=== PATIENT | male | born 1950 | race Caucasian/White ===

== ENCOUNTER 2021-08-14 12:19 | Day surgery (SDC) | payer MEDICARE, OTHER ==
[~2021-08-14] VITALS: Ht 195.6 cm; Wt 124.6 kg
[2021-08-14] MEDS ORDERED: ZOCOR 40MG40 MG PO (12:50)
[2021-08-14] MEDS ORDERED: ADVIL200 MG PO (12:51)
[2021-08-14] MEDS ORDERED: NORCO 325 MG-51 TAB PO (14:05)
[2021-08-14] MEDS ORDERED: FLOMAX 0.40.4 MG/CAP PO (14:05)
[2021-08-14 14:55] VITALS: BP 153/79; PULSE 74; TEMP 97.3
--- NOTE | 2021-08-14 14:55 | NUR ---
Patient arrived back into [facility] from PACU. Report received from MANI Schwartz. Patient requesting cranberry juice and toast. at bedside.
[2021-08-14 15:06] VITALS: BP 141/79; PULSE 86; TEMP 98.2
[2021-08-14 15:10] VITALS: BP 154/84; PULSE 65
--- NOTE | 2021-08-14 15:15 | NUR ---
Patient went to restroom. Voided with some blood clots.
[2021-08-14 15:25] VITALS: BP 147/82; PULSE 76
--- NOTE | 2021-08-14 15:25 | NUR ---
Went through discharge instructions with patient and his . Verbalized understanding to education. Patient reports tolerable pain, denies nausea/vomiting. IV removed with no complications. Patient went to restroom and got dressed with assistance of .
--- NOTE | 2021-08-14 15:40 | NUR ---
Patient escorted to patient entrance via wheelchair. Patient's along side. Patient got into personal vehicle independently and left in the care of his , Elizabeth.
== END 2021-08-14 15:40 | disposition home or self-care (01) ==
LOC: SDCO 12:19
DX: N20.1 Calculus of ureter (principal); E78.5 Hyperlipidemia, unspecified; R97.20 Elevated prostate specific antigen [PSA]; R15.2 Fecal urgency; Z79.899 Other long term (current) drug therapy
CPT/HCPCS: C1769; C2617; J0690; J1100; J2405; J2704; J3010; J7120; Q9967